=== PATIENT | male | born 1995 | race Caucasian/White ===

== ENCOUNTER 2017-03-08 15:14 | Emergency (ER) | payer BC ==
[2017-03-08 15:19] VITALS: BP 118/77; PULSE 88; RESP 18; TEMP 97.9; O2SAT 95
--- NOTE | 2017-03-08 15:28 | EDPHY ---
H & P Time Seen by Provider: 03/08/17 15:22 HPI/ROS: CHIEF COMPLAINT: Left thumb crush injury HISTORY OF PRESENT ILLNESS: 21-year-old male with up-to-date tetanus accidentally crushed his left thumb between 2 rocks. Complaining of subungual hematoma. Occurred earlier today. No pain with range of motion. PHYSICAL EXAM (Prior to examination, patient consented to physical exam, hands were washed and my usual and customary physical exam procedures followed) 1) GENERAL: Well-developed, well-nourished, alert and oriented. Appears to be in no acute distress. 2) HEAD: Normocephalic 3) HEENT: sclera anicteric 4) LUNGS: Breathing comfortably. 5) SKIN: There is an abrasion lateral to the nail bed. Subungual hematoma approximately 60% of nail area. 6) MUSCULOSKELETAL: Compartments are soft. No evidence of paronychia or felon. The flexor extensor function of the MCP and IP are intact Smoking Status: Never smoked Constitutional: Initial Vital Signs Temperature (C) 36.6 C 03/08/17 15:16 Heart Rate 88 03/08/17 15:16 Respiratory Rate 18 03/08/17 15:16 Blood Pressure 118/77 03/08/17 15:16 O2 Sat (%) 95 03/08/17 15:16 Allergies/Adverse Reactions: No Known Allergies Allergy (Unverified 03/08/17 15:16) Home Medications: Medication Instructions Recorded NK [No Known Home Meds] 03/08/17 MDM/Departure - MDM Procedures: Procedure: Drainage of the subungual hematoma Locations: Subungual hematoma of 60% of nail area Indications risks benefits discussed with patient. Using electrocautery the nail was trephinated with immediate release of blood. Patient tolerated procedure well. Wound is dressed. - Depart Disposition: Home, Routine, Self-Care Clinical Impression: Hematoma, subungual, thumb, left Qualifiers: Encounter type: initial encounter Qualified Code(s): S60.112A - Contusion of left thumb with damage to nail, initial encounter Condition: Good Instructions: Subungual Hematoma (ED) Additional Instructions: Return to the ER if you develop redness, swelling, discharge, warmth to the wound, red streaks going up your arm , or any other symptoms that concern you. Referrals: Tashi Alvarado MD [Medical Doctor] - 5-7 days, call for appt.
== END 2017-03-08 16:02 | disposition home or self-care (01) ==
PROC: 0H9QXZZ Drainage of Finger Nail, External Approach (ICD-10-PCS; principal; 2017-03-08)
DX: S60.112A Contusion of left thumb with damage to nail, initial encounter (principal); W23.1XXA Caught, crushed, jammed, or pinched between stationary objects, initial encounter

== ENCOUNTER 2017-03-16 12:18 | Emergency (ER) | payer BC ==
[2017-03-16 12:22] VITALS: RESP 16; TEMP 97.9
--- NOTE | 2017-03-16 13:05 | EDPHY ---
H & P Stated Complaint: l thumb inj seen 03/08 here for wound recheck/states saw pus HPI/ROS: HPI CHIEF COMPLAINT: ?left thumb infection. HISTORY OF PRESENT ILLNESS: This patient very pleasant 21-year-old male denies any significant medical history comes back to the emergency room after he states yesterday or 24 hours ago he saw some yellow discharge from his left thumb. He recently had a subungual hematoma drained. Concerned that it may be infected. Upon arrival here in emergency room I did evaluate him there is no evidence of infection of his thumb. This subungual hematoma is drain. He has no swelling, no redness, no expression of pus. Patient requesting antibiotics. Past Medical History: No medical history Past Surgical History: No surgical history Social History: Denies daily use drugs alcohol tobacco products Family History: Noncontributory ROS REVIEW OF SYSTEMS: A comprehensive 10 point review of systems is otherwise negative aside from elements mentioned in the history of present illness. Exam Constitutional triage nursing summary reviewed, vital signs reviewed, awake/ alert. Eyes normal conjunctivae and sclera, EOMI, PERRLA. HENT normal inspection, atraumatic, moist mucus membranes, no epistaxis, neck supple/ no meningismus, no raccoon eyes. Respiratory clear to auscultation bilaterally, normal breath sounds, no respiratory distress, no wheezing. Cardiovascular rate normal, regular rhythm, no murmur, no edema, distal pulses normal. Gastrointestinal soft, non-tender, no rebound, no guarding, normal bowel sounds, no distension, no pulsatile mass. Genitourinary no CVA tenderness. Musculoskeletal no midline vertebral tenderness, full range of motion, no calf swelling, no tenderness of extremities, no meningismus, good pulses, neurovascularly intact. Left hand: Left thumb: Recently drained subungual hematoma, no evidence of cellulitis or behzad pus. No paronychia. Nontender palpation, no significant swelling or redness. Skin pink, warm, & dry, no rash, skin atraumatic. Neurologic awake, alert and oriented x 3, AAOx3, moves all 4 extremities equally, motor intact, sensory intact, CN II-XII intact, normal cerebellar, normal vision, normal speech. Psychiatric normal mood/affect. Heme/Lymph/Immune no lymphadenopathy. Differential Diagnosis: Includes but is not limited to in a particular order, recent drainage subungual hematoma, finger infection, cellulitis Medical Decision Making: Do recommend this patient does warm soaks 3 times a day for 20 minutes. He is requesting antibiotic which I will prescribe him for Keflex as he is traveling back to [place]. Source: Patient - Personal History Current Tetanus/Diphtheria Vaccine: Yes Tetanus Vaccine Date: < 10 years - Medical/Surgical History Hx Asthma: No Hx Chronic Respiratory Disease: No Hx Diabetes: No Hx Cardiac Disease: No Hx Renal Disease: No Hx Cirrhosis: No Hx Alcoholism: No Hx HIV/AIDS: No Hx Splenectomy or Spleen Trauma: No Other PMH: ADHD - Social History Smoking Status: Never smoked Constitutional: Initial Vital Signs Temperature (C) 36.6 C 03/16/17 12:20 Heart Rate 76 03/16/17 12:20 Respiratory Rate 16 03/16/17 12:20 Blood Pressure 117/69 03/16/17 12:20 O2 Sat (%) 95 03/16/17 12:20 O2 Delivery Mode Room Air Allergies/Adverse Reactions: No Known Allergies Allergy (Verified 03/16/17 12:19) Home Medications: Medication Instructions Recorded Cephalexin [Keflex] 500 mg PO Q6H #28 cap 03/16/17 Departure - Departure Disposition: Home, Routine, Self-Care Clinical Impression: Finger infection Condition: Good Instructions: Cellulitis (ED) Additional Instructions: 1. Please do warm soaks 3 times a day for 20 minutes. 2. Watch your wound closely return emergency room if you have any worsening symptoms includes worsening pain, fever, redness, drainage. Referrals: NONE *PRIMARY CARE P,. [Primary Care Provider] - As per Instructions Prescriptions: Cephalexin [Keflex] 500 mg PO Q6H #28 cap
[2017-03-16 13:45] VITALS: BP 114/68; PULSE 74; O2SAT 96
== END 2017-03-16 13:45 | disposition home or self-care (01) ==
DX: L08.9 Local infection of the skin and subcutaneous tissue, unspecified (principal)